=== PATIENT | female | born 1985 | race Caucasian/White ===

== ENCOUNTER 2019-07-26 16:10 | Emergency (ER) | payer SELFPAY ==
[~2019-07-26] VITALS: Ht 167.6 cm; Wt 49.9 kg
[~2019-07-26 16:10] MED LIST: ANTI DEPRESSANT; HYDACE5 PO; MULVITMINE; MULVITMINE PO
[2019-07-26] MEDS ORDERED: Veetids 500500 MG PO (17:56)
== END 2019-07-26 18:00 | disposition home or self-care (01) ==
LOC: ER 16:10
DX: K02.9 Dental caries, unspecified (principal); F17.210 Nicotine dependence, cigarettes, uncomplicated
CPT/HCPCS: 99282

== ENCOUNTER 2019-09-06 12:28 | Emergency (ER) | payer OTHER ==
[~2019-09-06] VITALS: Ht 167.6 cm; Wt 61.2 kg
[~2019-09-06 12:28] MED LIST changes: +Veetids 500500 MG PO
[2019-09-06 13:21] LABS: Influenza A Negative (NEGATIVE); Influenza B Positive (NEGATIVE)
== END 2019-09-06 13:43 | disposition home or self-care (01) ==
LOC: ER 12:28
PROVIDERS: Physician Assistant
DX: J10.1 Influenza due to other identified influenza virus with other respiratory manifestations (principal); F17.210 Nicotine dependence, cigarettes, uncomplicated
CPT/HCPCS: 87804; 99283